=== PATIENT | female | born 2000 | race Caucasian/White ===

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

== ENCOUNTER 2018-06-29 14:58 | Emergency (ER) | payer SELFPAY ==
--- NOTE | 2018-06-29 15:24 | ED ---
Throat Pain/Nasal Congestion - HPI Summary HPI Summary: Patient is a 17-year-old female who presents emergency department for cough and ear pain. Patient states she started with cough several days ago and mild right ear pain. She states ear pain has exacerbated today. She notes fever and chills. Denies abdominal pain, vomiting, diarrhea. She notes history of asthma but states she has not needed her inhaler. She also notes history of recurrent ear infections with tympanostomy tubes. Symptoms are mild in severity. No current modifying factors. - History of Current Complaint Chief Complaint: EDEarPain Time Seen by Provider: 06/29/18 15:23 Hx Obtained From: Patient - Allergies/Home Medications Allergies/Adverse Reactions: Allergies Allergy/AdvReac Type Severity Reaction Status Date / Time Anesthetics - Clover Type- Allergy Bleeding Verified 06/29/18 15:13 Parabens PMH/Surg Hx/FS Hx/Imm Hx Previously Healthy: Yes Respiratory History: Reports: Hx Asthma - Surgical History Surgery Procedure, Year, and Place: T&A, tubes in ears. Infectious Disease History: No Infectious Disease History: Denies: Traveled Outside the [place] in Last 30 Days - Family History Known Family History: Positive: Hypertension, Other - no related skin family history. - Social History Occupation: Employed Full-time Lives: With Family Alcohol Use: None Substance Use Type: Reports: None Smoking Status (MU): Light Every Day Tobacco Smoker Type: Cigarettes Amount Used/How Often: 1/3 PPD Review of Systems Positive: Fever, Chills Eyes: Negative Positive: Ear Ache Positive: Cough. Negative: Shortness Of Breath Gastrointestinal: Negative Skin: Negative Neurological: Negative All Other Systems Reviewed And Are Negative: Yes Physical Exam Triage Information Reviewed: Yes Vital Signs On Initial Exam: Initial Vitals Temp Pulse Resp BP Pulse Ox 98.7 F 106 16 153/109 98 06/29/18 15:08 06/29/18 15:08 06/29/18 15:08 06/29/18 15:08 06/29/18 15:08 Vital Signs Reviewed: Yes Appearance: Positive: Well-Appearing - Pt. sitting on chair, coughing. S.O present. Nontoxic. Skin: Positive: Warm, Dry Head/Face: Positive: Normal Head/Face Inspection Eyes: Positive: Normal, EOMI, VIMAL, Conjunctiva Clear ENT: Positive: Pharynx normal, Other - Tympanostomy tube and left ear without drainage. Right TM is erythematous and bulging.. Negative: Tonsillar swelling , Tonsillar exudate Neck: Positive: Supple, Nontender, No Lymphadenopathy Respiratory/Lung Sounds: Positive: Clear to Auscultation, Breath Sounds Present , Other - Dry cough noted. Negative: Decreased Breath Sounds, Rales, Rhonchi, Wheezes Cardiovascular: Positive: Normal, RRR Musculoskeletal: Positive: Normal, Strength/ROM Intact Neurological: Positive: Normal, CN Intact II-III Psychiatric: Positive: Affect/Mood Appropriate Diagnostics - Vital Signs Vital Signs Temp Pulse Resp BP Pulse Ox 06/29/18 15:08 98.7 F 106 16 153/109 98 - Laboratory Lab Statement: Any lab studies that have been ordered have been reviewed, and results considered in the medical decision making process. EENT Course/Dx - Course Course Of Treatment: Patient's exam consistent with otitis media and cough. We' ll start her on Augmentin. Advised to use [id number] antitussives. NSAIDs for pain and fever as directed. [facility]. To return to the ear symptoms change or worsen. Patient understands and agrees with plan. - Diagnoses Provider Diagnoses: Cough, Otitis media Discharge - Sign-Out/Discharge Documenting (check all that apply): Patient Departure - Discharge Plan Condition: Good Disposition: HOME Prescriptions: Amoxicillin/Clavulanate TAB* [Augmentin TAB 875*] 875 mg PO BID #20 tab Patient Education Materials: Ear Infection (ED) Referrals: [facility] [Outside] Additional Instructions: Schedule a follow up appointment with [facility] Take antibiotic as directed Can take over the counter cough medicine such as robitussin NSAIDS for pain and fever as directed such as ibuprofen Increase fluids and rest Return to ER if symptoms change or worsen - Billing Disposition and Condition Condition: GOOD Disposition: Home
[2018-06-29 16:02] VITALS: BP 140/87
== END 2018-06-29 16:01 | disposition home or self-care (01) ==
LOC: ED 14:58
DX: H66.91 Otitis media, unspecified, right ear (principal); R05 Cough; F17.210 Nicotine dependence, cigarettes, uncomplicated
CPT/HCPCS: 99281

== ENCOUNTER 2018-09-25 22:09 | Emergency (ER) | payer SELFPAY ==
--- NOTE | 2018-09-26 00:13 | UC ---
UC General HPI - HPI Summary HPI Summary: 18 yo female presents requesting test. She tells me that she is not on any control and she has been having unprotected intercourse with her boyfriend. She has had 3 faint positive tests at home and one strong positive today and is requesting blood draw today. Denies abdominal pain, n/v, vaginal bleeding or discharge. Has never been in the past. - History of Current Complaint Chief Complaint: EDOBProblems Stated Complaint: TEST PER PT Hx Obtained From: Patient Hx Last Menstrual Period: "I really don't know. It's been a while. I'm comin' off the Depo shot." Pain Intensity: 0 - Allergy/Home Medications Allergies/Adverse Reactions: Allergies Allergy/AdvReac Type Severity Reaction Status Date / Time Anesthetics - Clover Type- Allergy Bleeding Verified 09/25/18 22:38 Parabens PMH/Surg Hx/FS Hx/Imm Hx Respiratory History: Asthma - Surgical History Surgical History: Yes Surgery Procedure, Year, and Place: T&A, tubes in ears. - Family History Known Family History: Positive: Hypertension, Other - no related skin family history. - Social History Lives: With Family Alcohol Use: None Substance Use Type: None Smoking Status (MU): Light Every Day Tobacco Smoker Type: Cigarettes Amount Used/How Often: 1/3 PPD When Did the Patient Quit Smoking/Using Tobacco: Since Age 10 Household Exposure Type: Cigarettes - Immunization History Most Recent Influenza Vaccination: yes 2016 Vaccination Up to Date: Yes Review of Systems All Other Systems Reviewed And Are Negative: Yes Constitutional: Positive: Negative Skin: Positive: Negative Respiratory: Positive: Negative Cardiovascular: Positive: Negative Gastrointestinal: Positive: Negative Genitourinary: Positive: Negative Neurovascular: Positive: Negative Neurological: Positive: Negative Psychological: Positive: Negative Physical Exam - Summary Physical Exam Summary: GENERAL: NAD. WDWN. No pain distress. SKIN: No rashes, sores, lesions, or open wounds. NECK: Supple. Nontender. No lymphadenopathy. CHEST: CTAB. No r/r/w. No accessory muscle use. Breathing comfortably and in no distress. CV: RRR. Without m/r/g. Pulses intact. Cap refill <2seconds ABDOMEN: Soft. NTTP. No distention or guarding. No CVA tenderness. Bowel sounds present NEURO: Alert. PSYCH: Age appropriate behavior. Triage Information Reviewed: Yes Vital Signs: Initial Vital Signs Temp 98.5 F 09/25/18 22:35 Pulse 88 09/25/18 22:35 Resp 16 09/25/18 22:35 BP 148/103 09/25/18 22:35 Pulse Ox 97 09/25/18 22:35 Laboratory Tests 09/25/18 23:05 Beta HCG, Quant 61.88 Vital Signs Reviewed: Yes Course/Dx - Course Course Of Treatment: test positive. Discussed with pt and her boyfriend with her today. Advised to f/u with OBGYN and refrain from smoking/alcohol. - Diagnoses Provider Diagnosis: Positive test Discharge - Sign-Out/Discharge Documenting (check all that apply): Patient Departure Patient Received Moderate/Deep Sedation with Procedure: No - Discharge Plan Condition: Stable Disposition: HOME Patient Education Materials: (ED) Referrals: No Primary Care Phys,NOPCP [Primary Care Provider] - Britany Ramon MD [Medical Doctor] - As Soon As Possible Additional Instructions: If you develop a fever, shortness of breath, chest pain, new or worsening symptoms - please call your PCP or go to the ED. Your blood pressure was high at todays visit. Please see your primary provider within 4 weeks for recheck and re-evaluation. 1) Please schedule an appointment with OBGYN as soon as possible for your - Billing Disposition and Condition Condition: STABLE Disposition: Home
[2018-09-26 02:06] VITALS: BP 132/89
== END 2018-09-26 02:06 | disposition home or self-care (01) ==
LOC: ED 22:09
DX: Z34.90 Encounter for supervision of normal pregnancy, unspecified, unspecified trimester (principal); F17.210 Nicotine dependence, cigarettes, uncomplicated
CPT/HCPCS: 36415; 84702; 99282

== ENCOUNTER → 2018-09-28 18:54 | Emergency (ER) | payer SELFPAY ==
[~2018-09-28 18:54] MED LIST: NS 0.9% 1000 ML** 1,000 ML IV ONE
--- NOTE | 2018-09-28 19:18 | ED ---
GI/ HPI - HPI Summary HPI Summary: 18-year-old female presents with vaginal spotting when she wipes. States she found out she was 2 days ago. She denies any pain. No urinary symptoms. no nausea or vomiting. No fevers. She states only has a spotting when she wipes. She states that she denies any dizziness or palpitations. Never had this before. Last menstrual period was last month sometime. She has not followed with anyone about this. - History of Current Complaint Chief Complaint: EDVaginalBleeding Time Seen by Provider: 09/28/18 19:10 Stated Complaint: AND BLEEDING PER PT Hx Last Menstrual Period: "I really don't know. It's been a while. I'm comin' off the Depo shot." Pain Intensity: 0 - Allergy/Home Medications Allergies/Adverse Reactions: Allergies Allergy/AdvReac Type Severity Reaction Status Date / Time Anesthetics - Clover Type- Allergy Bleeding Verified 09/28/18 18:57 Parabens Home Medications: Home Medications NK [No Home Medications Reported] 09/28/18 [History Confirmed 09/28/18] PMH/Surg Hx/FS Hx/Imm Hx Endocrine/Hematology History: Denies: Hx Anticoagulant Therapy Respiratory History: Reports: Hx Asthma - Surgical History Surgery Procedure, Year, and Place: T&A, tubes in ears. Infectious Disease History: No Infectious Disease History: Denies: Traveled Outside the [place] in Last 30 Days - Family History Known Family History: Positive: Hypertension, Other - no related skin family history. - Social History Alcohol Use: None Substance Use Type: Reports: None Smoking Status (MU): Light Every Day Tobacco Smoker Type: Cigarettes Amount Used/How Often: 1/3 PPD Review of Systems Negative: Fever Negative: Chest Pain Negative: Shortness Of Breath Positive: Other - vaginal spotting. Negative: Abdominal Pain All Other Systems Reviewed And Are Negative: Yes Physical Exam Triage Information Reviewed: Yes Vital Signs On Initial Exam: Initial Vitals Temp Pulse Resp BP Pulse Ox 98.0 F 91 15 150/89 99 09/28/18 18:55 09/28/18 18:55 09/28/18 18:55 09/28/18 18:55 09/28/18 18:55 Vital Signs Reviewed: Yes Appearance: Positive: Well-Appearing Skin: Positive: Warm, Dry Head/Face: Positive: Normal Head/Face Inspection Eyes: Positive: Normal, Conjunctiva Clear ENT: Positive: Pharynx normal Respiratory/Lung Sounds: Positive: Clear to Auscultation, Breath Sounds Present Cardiovascular: Positive: Normal, RRR Abdomen Description: Positive: Nontender, Soft Bowel Sounds: Positive: Present Musculoskeletal: Positive: Normal Neurological: Positive: Normal Psychiatric: Positive: Normal Diagnostics - Vital Signs Vital Signs Temp Pulse Resp BP Pulse Ox 09/28/18 18:55 98.0 F 91 15 150/89 99 - Laboratory Result Diagrams: 09/28/18 19:20 09/28/18 19:20 Lab Statement: Any lab studies that have been ordered have been reviewed, and results considered in the medical decision making process. GIGU Course/Dx - Course Course Of Treatment: 18-year-old female presents with vaginal spotting when she wipes. States she found out she was 2 days ago. She denies any pain. No urinary symptoms. no nausea or vomiting. No fevers. She states only has a spotting when she wipes. She states that she denies any dizziness or palpitations. Never had this before. Last menstrual period was last month sometime. She has not followed with anyone about this. On exam nontender abdomen. wbc normal. hcg 61 which was three days ago. discussed likely miscarrying at hcg has not increased after 48 hours. told follow up with shearer operator to make sure trends downward. patient understand and agrees with plan. - Diagnoses Differential Diagnoses - Female: Ectopic , , Urinary Tract Infection Provider Diagnoses: Vaginal bleeding, Discharge - Sign-Out/Discharge Documenting (check all that apply): Patient Departure Patient Received Moderate/Deep Sedation with Procedure: No - Discharge Plan Condition: Good Disposition: HOME Patient Education Materials: Threatened Miscarriage (ED) Referrals: [facility] [place] [facility] [Outside] Additional Instructions: Can take Tylenol for pain every 6 hours Follow up with obgyn Return to ED if develop any new or worsening symptoms - Billing Disposition and Condition Condition: GOOD Disposition: Home
[2018-09-28 19:26] LABS: ABS Basophils 0 10^3/ul (0-0.2); ABS Eosinophils 0 10^3/ul (0-0.6); ABS Lymphocytes 2.8 10^3/ul (1.0-4.8); ABS Monocytes 0.5 10^3/ul (0-0.8); ABS Neutrophils 4.2 10^3/ul (1.5-7.7); ABS Nucleated RBC 0 10^3/ul; Eosinophil % 0.6 %; Hematocrit 42 % (33-41); Hemoglobin 14.5 g/dL (12.0-16.0); Lymphocyte % 36.9 %; Mean Corpuscular HGB Conc 35 g/dL (31-36); Mean Corpuscular Hemoglobin 29 pg (27-31); Mean Corpuscular Volume 85 fL (80-97); Mean Platelet Volume 7.2 fL (7.4-10.4); Nucleated Red Blood Cells % 0.1; Platelet Count 230 10^3/uL (150-450); Red Blood Count 4.93 10^6 /uL (3.70-4.87); Red Cell Distribution Width 13 % (10.5-15); White Blood Count 7.6 10^3/uL (3.5-10.8)
[2018-09-28 19:44] LABS: Albumin 4.7 g/dL (3.2-5.2); Albumin/Globulin Ratio 1.7 (1-3); BUN/Creatinine Ratio 14.3 (8-20); Calcium 9.5 mg/dL (8.6-10.3); EGFR African American 145.8 (>60); EGFR Non-African American 120.5 (>60); Globulin 2.7 g/dL (2-4); Potassium 4.7 mmol/L (3.5-5.0); Total Bilirubin 0.4 mg/dL (0.2-1.0); Total Protein 7.4 g/dL (6.4-8.9)
[2018-09-28 19:50] LABS: HCG Pregnancy 61.85 mIU/mL
[2018-09-28 20:26] VITALS: BP 134/78
== END | disposition home or self-care (01) ==
LOC: ED 18:54
DX: O20.9 Hemorrhage in early pregnancy, unspecified (principal); O99.331 Smoking (tobacco) complicating pregnancy, first trimester; Z3A.01 Less than 8 weeks gestation of pregnancy
CPT/HCPCS: 36415; 80053; 84702; 85025; 86850; 86900; 86901; 96360; 99282

== ENCOUNTER → 2018-11-23 18:08 | Emergency (ER) | payer MEDICAID, OTHER ==
[2018-11-23 18:15] VITALS: BP 160/108
== END | disposition left against medical advice (07) ==
LOC: ED 18:08
DX: O46.90 Antepartum hemorrhage, unspecified, unspecified trimester (principal); Z53.21 Procedure and treatment not carried out due to patient leaving prior to being seen by health care provider

== ENCOUNTER 2020-06-12 12:47 | Inpatient (IN) ==
[2020-06-12] MEDS ORDERED: Buffered Lidocaine 1% SYRIN 1 ml INTRADERM ONE (13:16)
[2020-06-12] MEDS ORDERED: Lactated Ringers 1000 ml BAG 1,000 ML IV ONE ×2 (13:16→20:27)
[2020-06-12] MEDS ORDERED: Lactated Ringers 1000 ml BAG 1,000 ML IV SCH ×2 (14:00→21:00)
[2020-06-12 14:49] LABS: ABS Lymphocytes 2.4 10^3/ul (1.0-4.8); ABS Monocytes 0.6 10^3/ul (0-0.8); ABS Neutrophils 7.4 10^3/ul (1.5-7.7); Eosinophil % 0.1 %; Hematocrit 37 % (35-47); Hemoglobin 12.7 g/dL (12.0-16.0); Lymphocyte % 23.1 %; Mean Corpuscular HGB Conc 35 g/dL (31-36); Mean Corpuscular Hemoglobin 29 pg (27-31); Mean Corpuscular Volume 85 fL (80-97); Mean Platelet Volume 7.8 fL (7.4-10.4); Platelet Count 201 10^3/uL (150-450); Red Blood Count 4.33 10^6 /uL (3.70-4.87); Red Cell Distribution Width 13 % (10-15); White Blood Count 10.5 10^3/uL (3.5-10.8)
[2020-06-12 15:24] LABS: Urine Benzodiazepine Screen None Detected (None Detect); Urine Cannabinoids Screen None Detected (None Detect); Urine Opiates Screen None Detected (None Detect)
[2020-06-12] MEDS ORDERED: fentaNYL 100 mcg/2 ml 50 MCG/ML VIAL IV SLOW PU PRN (18:13)
[2020-06-12] MEDS ORDERED: fentaNYL 100 mcg/2 ml 50 MCG/ML VIAL ONE (18:17)
[2020-06-12] MEDS ORDERED: OBEPIDURAL 250 ML EPIDURAL ONE (19:20)
[2020-06-12] MEDS ORDERED: Lactated Ringers 1000 ml BAG 500 ML IV PRN ×2 (20:27)
[2020-06-12] MEDS ORDERED: Phenylephrine 40 mcg/mL 10mL (400mcg) SYRINGE IV PUSH PRN ×2 (20:27)
[2020-06-12] MEDS ORDERED: Sodium Citrate/Citric Acid LIQ 15 ML UDC PO PRN (20:27)
[2020-06-12] MEDS ORDERED: fentaNYL 100 mcg/2 ml 50 MCG/ML VIAL IV ONE (20:29)
[2020-06-12] MEDS ORDERED: OBEPIDURAL 250 ML EPIDURAL SCH (21:00)
[2020-06-13] MEDS ORDERED: Oxytocin in LR 20 UNITS/1,000 ML BAG IVPB ONE (00:04)
[2020-06-13] MEDS ORDERED: Witch Hazel PAD JAR TOPICAL PRN (00:28)
[2020-06-13] MEDS ORDERED: Glycerin ADULT 2.4 gm SUPP PR PRN (00:28)
[2020-06-13] MEDS ORDERED: Oxytocin in LR 20 UNITS/1,000 ML BAG IVPB SCH (01:00)
[2020-06-13] MEDS ORDERED: Lactated Ringers 1000 ml BAG 1,000 ML IV SCH (01:00)
[2020-06-13] MEDS ORDERED: Lidocaine 1% VIAL 10 MG/ML VIAL ONE (05:26)
[2020-06-13] MEDS ORDERED: Dibucaine 1% OINT 28.35 GM TUBE TOPICAL PRN (15:43)
[2020-06-13] MEDS ORDERED: Influenza VAC *QUAD* 2020-21* 0.5 ML SYRINGE IM ONE (17:00)
[2020-06-13] MEDS ORDERED: Tetan/Diph/Pertus SYR(Tdap) 0.5 ML SYR(BOOSTRIX) use SYR contains LATEX IM ONE (17:00)
[2020-06-14 06:32] LABS: ABS Eosinophils 0.1 10^3/ul (0-0.6); ABS Lymphocytes 2.5 10^3/ul (1.0-4.8); ABS Monocytes 0.6 10^3/ul (0-0.8); ABS Neutrophils 4.7 10^3/ul (1.5-7.7); Eosinophil % 1.1 %; Hematocrit 31 % (35-47); Hemoglobin 10.6 g/dL (12.0-16.0); Lymphocyte % 31.7 %; Mean Corpuscular HGB Conc 34 g/dL (31-36); Mean Corpuscular Hemoglobin 30 pg (27-31); Mean Corpuscular Volume 86 fL (80-97); Mean Platelet Volume 7.5 fL (7.4-10.4); Platelet Count 153 10^3/uL (150-450); Red Cell Distribution Width 13 % (10-15); White Blood Count 7.9 10^3/uL (3.5-10.8)
[2020-06-14 07:53] VITALS: BP 137/82
[2020-06-14] MEDS ORDERED: Varicella Virus Vaccine Live 0.5 ML VIAL SUBCUT ONE (09:00)
== END 2020-06-14 13:45 | disposition home or self-care (01) | DRG 560 ==
LOC: MCHOBOUT 12:47 → MCHOB 13:14
PROVIDERS: ADMIT Midwife; ATTEND Midwife

== ENCOUNTER 2022-02-01 12:13 | Inpatient (IN) ==
[2022-02-01] MEDS ORDERED: Lactated Ringers 1000 ml BAG 1,000 ML IV ONE (14:00)
[2022-02-01] MEDS ORDERED: Buffered Lidocaine 1% SYRIN 1 ml INTRADERM ONE (14:00)
[2022-02-01] MEDS ORDERED: Oxytocin in LR 20,000 MILLI.UNIT/1,000 ML BAG IV SCH (14:30)
[2022-02-01 15:31] LABS: ABS Lymphocytes 2.2 10^3/ul (1.0-4.8); ABS Monocytes 0.6 10^3/ul (0-0.8); ABS Neutrophils 6.9 10^3/ul (1.5-7.7); Eosinophil % 0.2 %; Hematocrit 33 % (35-47); Hemoglobin 11.4 g/dL (12.0-16.0); Mean Corpuscular HGB Conc 35 g/dL (31-36); Mean Corpuscular Hemoglobin 30 pg (27-31); Mean Corpuscular Volume 87 fL (80-97); Mean Platelet Volume 7.7 fL (7.4-10.4); Platelet Count 168 10^3/uL (150-450); Red Blood Count 3.79 10^6 /uL (3.70-4.87); Red Cell Distribution Width 14 % (10-15); White Blood Count 9.7 10^3/uL (3.5-10.8)
[2022-02-01] MEDS: Lactated Ringers 1000 ml BAG 1,000 ML IV SCH (15:48)
[2022-02-01 17:05] LABS: Urine Benzodiazepine Screen None Detected (None Detect); Urine Cannabinoids Screen Presumptive Positive (None Detect); Urine Opiates Screen None Detected (None Detect)
[2022-02-02] MEDS ORDERED: Lidocaine 2% w/ EPI 1:200,000 MPF 20 ML SDV VIAL ONE (00:19)
[2022-02-02] MEDS ORDERED: fentaNYL 100 mcg/2 ml 50 MCG/ML VIAL ONE (00:19)
[2022-02-02] MEDS ORDERED: Bupivacaine 0.25% SDV PF 10 ML VIAL INJ ONE (00:19)
[2022-02-02] MEDS ORDERED: OBEPIDURAL (200 ML) 200 ML EPIDURAL ONE (00:19)
[2022-02-02] MEDS ORDERED: Lactated Ringers 1000 ml BAG 1,000 ML IV ONE (01:14)
[2022-02-02] MEDS ORDERED: Sodium Citrate/Citric Acid LIQ 15 ML UDC PO PRN (01:14)
[2022-02-02] MEDS ORDERED: OBEPIDURAL (200 ML) 200 ML EPIDURAL SCH (02:00)
[2022-02-02] MEDS ORDERED: Lactated Ringers 1000 ml BAG 1,000 ML IV SCH ×2 (02:00→12:00)
[2022-02-02] MEDS: Lactated Ringers 1000 ml BAG 1,000 ML IV SCH ×2 (02:34→05:50)
[2022-02-02] MEDS ORDERED: Glycerin ADULT 2.4 gm SUPP PR PRN (11:33)
[2022-02-02] MEDS ORDERED: Witch Hazel PAD JAR TOPICAL PRN (11:33)
[2022-02-02] MEDS ORDERED: Dibucaine 1% OINT 28.35 GM TUBE PR PRN (11:33)
[2022-02-02] MEDS ORDERED: Oxytocin in LR 20,000 MILLI.UNIT/1,000 ML BAG IV SCH (11:45)
[2022-02-03 07:11] LABS: ABS Eosinophils 0.1 10^3/ul (0-0.6); ABS Lymphocytes 3.1 10^3/ul (1.0-4.8); ABS Monocytes 0.5 10^3/ul (0-0.8); ABS Neutrophils 3.4 10^3/ul (1.5-7.7); Eosinophil % 0.9 %; Hematocrit 28 % (35-47); Hemoglobin 9.6 g/dL (12.0-16.0); Lymphocyte % 43.8 %; Mean Corpuscular HGB Conc 34 g/dL (31-36); Mean Corpuscular Hemoglobin 30 pg (27-31); Mean Corpuscular Volume 88 fL (80-97); Mean Platelet Volume 7.7 fL (7.4-10.4); Platelet Count 123 10^3/uL (150-450); Red Blood Count 3.19 10^6 /uL (3.70-4.87); Red Cell Distribution Width 14 % (10-15); White Blood Count 7.2 10^3/uL (3.5-10.8)
[2022-02-03 08:05] VITALS: BP 140/72
== END 2022-02-03 14:23 | disposition home or self-care (01) | DRG 560 ==
LOC: MCHOBOUT 12:13 → MCHOB 13:46
PROVIDERS: ADMIT Midwife; ATTEND Midwife